=== PATIENT | female | born 1950 | race Caucasian/White ===

== ENCOUNTER → 2020-03-12 | Outpatient (CLI) | payer MEDICARE ==
[2020-03-12 10:39] LABS: BASOPHILS % (AUTO) 1 % (0-1); EOSINOPHILS % (AUTO) 4 % (1-7); LYMPHOCYTES % (AUTO) 23 % (22-44); MEAN CORPUSCULAR HEMOGLOBIN 32.3 pg (27.0-34.8); MEAN CORPUSCULAR HGB CONC 33.4 g/dL (32.4-35.8); MEAN PLATELET VOLUME 7.3 fL (7.4-10.4); MONOCYTES % (AUTO) 9 % (2-9); NEUTROPHILS % (AUTO) 63 % (42-75); PLATELET COUNT 374 x10^3/uL (130-400); RED BLOOD COUNT 4.79 x10^6/uL (3.82-5.3); RED CELL DISTRIBUTION WIDTH 13.1 % (9.6-15.2)
[2020-03-12 10:50] LABS: ALANINE AMINOTRANSFERASE 18 U/L (12-78); ALBUMIN 3.7 g/dL (3.4-5.0); ANION GAP 5 mmol/L (5-15); CALCIUM 9.4 mg/dL (8.5-10.1); CHLORIDE 107 mmol/L (98-107); CREATININE 0.91 mg/dL (0.55-1.02)
[2020-03-12 10:52] LABS: ALKALINE PHOSPHATASE 107 U/L (45-117); BILIRUBIN,TOTAL 0.4 mg/dL (0.2-1.0)
[2020-03-12 10:53] LABS: MD NO
== END | disposition home or self-care (01) ==
LOC: STAR 09:29
PROVIDERS: ATTEND Orthopaedic Surgery
DX: Z01.818 Encounter for other preprocedural examination (principal); Z01.810 Encounter for preprocedural cardiovascular examination; M16.11 Unilateral primary osteoarthritis, right hip; M25.551 Pain in right hip; Z20.828 Contact with and (suspected) exposure to other viral communicable diseases
CPT/HCPCS: 36415; 80053; 85025; 87081; 87147; 87635; 93005

== ENCOUNTER 2020-03-16 05:37 | Observation (INO) | payer MEDICARE ==
[~2020-03-16] VITALS: Ht 165.1 cm; Wt 76.8 kg
[2020-03-16] MEDS ORDERED: LIDOCAINE-MPF 1%, 2ML INFIL STA (06:06)
[2020-03-16] MEDS ORDERED: LACTATED RINGERS 1,000 ML IV SCH (06:06)
[2020-03-16] MEDS ORDERED: CHLORHEXIDINE 15 ML UDC MM STA (06:06)
[2020-03-16] MEDS ORDERED: SUCCINYLCHOLINE 20 MG/ML, 10ML ONE (06:54)
[2020-03-16] MEDS ORDERED: CEFAZOLIN 1,000 MG ONE (06:54)
[2020-03-16] MEDS ORDERED: NEOSTIGMINE 1 MG/ML, 10ML ONE (06:54)
[2020-03-16] MEDS ORDERED: MIDAZOLAM 1 MG/ML, 2ML ONE (06:54)
[2020-03-16] MEDS ORDERED: FENTANYL PF 100 MCG/2ML ONE ×4 (06:54→09:59)
[2020-03-16] MEDS ORDERED: ONDANSETRON 2MG/ML, 2ML ONE (06:54)
[2020-03-16] MEDS ORDERED: PROPOFOL 10 MG/ML, 20ML ONE (06:54)
[2020-03-16] MEDS ORDERED: ROCURONIUM 10MG/ML,5ML ONE (06:54)
[2020-03-16] MEDS ORDERED: GLYCOPYRROLATE 0.2MG/1ML, 5ML ONE (06:54)
[2020-03-16] MEDS ORDERED: DEXAMETHASONE 4 MG/ML, 1ML ONE (06:54)
[2020-03-16] MEDS ORDERED: ROPIvacaine/PF 0.2%, 20 ML ONE (06:55)
[2020-03-16] MEDS ORDERED: TRANEXAMIC ACID 100 MG/ML, 10ML ONE ×2 (06:55)
[2020-03-16] MEDS ORDERED: VANCOMYCIN 1,000 MG ONE (06:55)
[2020-03-16] MEDS ORDERED: SODIUM CHLORIDE 0.9% 50 ML ONE ×2 (06:55→07:16)
[2020-03-16] MEDS ORDERED: KETOROLAC 60 MG/2 ML ONE ×2 (06:55→07:17)
[2020-03-16] MEDS ORDERED: EPINEPHRINE 1 MG/ML, 1ML ONE (06:56)
[2020-03-16] MEDS ORDERED: SUGAMMADEX 200 MG/2 ML IVPush ONE (07:49)
[2020-03-16] MEDS ORDERED: EPHEDRINE 50 MG/ML, 1ML ONE (07:49)
[2020-03-16] MEDS ORDERED: HYDROcodone/APAP 7.5-325MG/15ML UDC PO PRN (08:00)
[2020-03-16] MEDS ORDERED: OXYcodone 5 MG/5 ML ORAL.SOL UDC PO PRN ×2 (08:00→09:30)
[2020-03-16] MEDS ORDERED: PROMETHAZINE 25 MG/ML, 1ML IVPush PRN (08:00)
[2020-03-16] MEDS ORDERED: MEPERIDINE/PF 25MG/0.5ML IVPush PRN (08:00)
[2020-03-16] MEDS: FENTANYL PF 100 MCG/2ML IV PRN ×4 (09:16→10:28)
[2020-03-16] MEDS ORDERED: HYDROcodone/APAP 7.5-325MG/15ML UDC ONE (09:17)
[2020-03-16] MEDS ORDERED: HYDROmorphone 1 MG/ML, 1ML INJ ONE (09:17)
[2020-03-16] MEDS: HYDROmorphone 1 MG/ML, 1ML INJ IVPush PRN ×2 (09:28→09:33)
[2020-03-16] MEDS ORDERED: ONDANSETRON 2MG/ML, 2ML IVPush PRN (09:30)
[2020-03-16] MEDS ORDERED: HYDROmorphone 1 MG/ML, 1ML INJ IVPush PRN (09:30)
[2020-03-16] MEDS ORDERED: TRANEXAMIC ACID 1,000 MG in SODIUM CHLORIDE 0.9% 100 ML IVPB ONE (09:30)
[2020-03-16] MEDS ORDERED: SENNA/DOCUSATE TABLET PO PRN (09:30)
[2020-03-16] MEDS ORDERED: PROMETHAZINE 25 MG/ML, 1ML IM PRN (09:30)
[2020-03-16] MEDS ORDERED: POLYETHYLENE GLYCOL 17 GM PACKET PO PRN (09:30)
[2020-03-16] MEDS ORDERED: SODIUM CHLORIDE 0.9% 1,000 ML IV SCH (09:30)
[2020-03-16] MEDS ORDERED: ALUMINUM/MAG/SIMETHICONE 30 ML UDC PO PRN (09:30)
[2020-03-16] MEDS ORDERED: DIAZEPAM 5 MG TABLET PO PRN (09:30)
[2020-03-16] MEDS ORDERED: BISACODYL 10 MG SUPP PR PRN (09:30)
[2020-03-16] MEDS ORDERED: ONDANSETRON 4 MG TABLET PO PRN (09:30)
[2020-03-16] MEDS ORDERED: DIPHENHYDRAMINE 50 MG CAPSULE PO PRN (09:30)
[2020-03-16] MEDS ORDERED: OXYcodone IR 5MG TABLET PO PRN (09:30)
[2020-03-16] MEDS ORDERED: MAGNESIUM HYDROXIDE 8%, 30ML UDC PO PRN (09:30)
[2020-03-16] MEDS ORDERED: PROMETHAZINE 12.5 MG SUPP PR PRN (09:30)
[2020-03-16] MEDS: ACETAMINOPHEN 500 MG TABLET PO SCH ×3 (09:30→18:20)
[2020-03-16] MEDS ORDERED: PSYLLIUM PACKET PO PRN (09:30)
[2020-03-16] MEDS ORDERED: DIAZEPAM 5 MG/ML, 2ML ONE (09:59)
[2020-03-16] MEDS ORDERED: DIAZEPAM 5 MG/ML, 2ML IVPush PRN (10:00)
[2020-03-16] MEDS ORDERED: DIPHENHYDRAMINE 50 MG/ML, 1ML IVPush PRN (10:58)
[2020-03-16] MEDS ORDERED: KETOROLAC 30 MG/1 ML IV SCH (11:00)
[2020-03-16] MEDS ORDERED: CEFAZOLIN PMX 1GM/50ML 50 ML IVPB SCH (11:30)
[2020-03-16] MEDS ORDERED: TAMSULOSIN 0.4 MG CAP.ER.24H PO ONE (13:00)
[2020-03-16 14:45] VITALS: BP 120/81
[2020-03-16] MEDS ORDERED: ASPIRIN 81 MG TABLET EC PO SCH (21:00)
[2020-03-16] MEDS ORDERED: DOCUSATE 100 MG CAPSULE PO SCH (21:00)
[2020-03-17] MEDS ORDERED: DEXAMETHASONE 4 MG/ML, 1ML IVPush SCH (06:00)
== END 2020-03-16 18:30 | disposition home or self-care (01) ==
LOC: OUT 05:37 → 4NE 09:07
PROVIDERS: ADMIT Orthopaedic Surgery; ATTEND Orthopaedic Surgery
DX: M16.11 Unilateral primary osteoarthritis, right hip (principal); Z96.641 Presence of right artificial hip joint; Z79.899 Other long term (current) drug therapy; Z87.891 Personal history of nicotine dependence
CPT/HCPCS: 27130; 36415; 72170; 86850; 86900; 96365; 96375; 97161; C1713; C1776; G0378; J0171; J0330; J0690; J1100; J1170; J1885; J2250; J2405; J2704; J2710; J2795; J3010; J3360; J3490; J7120; Q0162; J3370